=== PATIENT | male | born 1930 | race African-American/Black ===

== ENCOUNTER → 2016-10-10 | Outpatient (CLI) | payer MEDICARE, OTHER ==
[2016-10-10 13:12] LABS: ANION GAP 12 (5-19); BLOOD UREA NITROGEN 19 mg/dL (7-20); CALCIUM 9.4 mg/dL (8.4-10.2); CARBON DIOXIDE 27 mmol/L (22-30); CHLORIDE 103 mmol/L (98-107); CREATININE RESULT 1.59 mg/dL (0.52-1.25); GLUCOSE 187 mg/dL (75-110); POTASSIUM 5.2 mmol/L (3.6-5.0); SODIUM 141.7 mmol/L (137-145)
== END ==
LOC: OD 11:39
PROVIDERS: ATTEND Internal Medicine Cardiovascular Disease
DX: E78.5 Hyperlipidemia, unspecified (principal); E11.65 Type 2 diabetes mellitus with hyperglycemia; I10 Essential (primary) hypertension
CPT/HCPCS: 36415; 80048

== ENCOUNTER → 2016-10-26 | Outpatient (CLI) | payer MEDICARE, OTHER | LOC: OD 14:17 | PROVIDERS: ATTEND Urology | DX: C61 Malignant neoplasm of prostate (principal) | CPT/HCPCS: 36415; 84153 ==

== ENCOUNTER → 2016-10-28 | Outpatient (CLI) | payer MEDICARE, OTHER ==
--- NOTE | 2016-10-28 16:45 | RADIOLOGY REPORT (SQ) ---
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 The route of agent administration: Intravenous. ADDITIONAL DRUGS AND DOSES: None. TECHNIQUE: Routine delayed images at 3 hours post radionuclide injection acquired of the bony skelet on including anterior and posterior whole-body projections and additional focused images as needed. LIMITATIONS: None. FINDINGS: BONES: Normal visualization without areas of photopenia or increased bony uptake of radiop harmaceutical. KIDNEYS: Bilateral renal function is again identified with some fullness of the left pelvocaliceal sy stem unchanged from the previous study. OTHER: No other significant finding. IMPRESSION: No evidence for skeletal metastatic disease. Other findings as noted above. COMMENT: PQRS 3570F: Current bone scan is compared with any available plain radiographs, prior bone scans, and CT/MRI. TECHNICAL DOCUMENTATION: JOB ID: [id number] [id number]- All Rights Reserved
--- NOTE | 2016-10-29 02:25 | RADIOLOGY REPORT (SQ) ---
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 Coronal T2/ HASTE imaging. LIMITATIONS: None. FINDINGS: VISUALIZED UPPER ABDOMEN: Peripelvic cysts left kidney. SEGMENTATION: No transitional anatomy. The lowest well-developed disc space is labeled L5-S1. ALIGNMENT: Anatomic. VERTEBRAE: Intact. BONE MARROW: Normal. No marrow replacement or reactive changes. DISC SIGNAL: Mild loss of T2 signal sparing L3-4. POSTERIOR ELEMENTS: Generally intact. No pars defect evident. HARDWARE: None in the spine. CORD AND CONUS: Normal in size and signal intensity. Conus at the appropriate level. SOFT TISSUES: No aortic aneurysm seen. No bulky retroperitoneal adenopathy or mass. No paraspinal mas s or fluid. L1-L2: No significant spinal stenosis or exit foraminal stenosis. L2-L3: Mild disc bulge. Ligamentous and facet hypertrophy right greater than left with mild lateral recess narrowing. Mild narrowing of the exit foramina. L3-L4: Disc bulge with facet and ligamentous hypertrophy. Mild narrowing of the exit foramina right greater than left. L4-L5: Generalized disc bulge. Facet and ligamentous hypertrophy. Mild to moderate narrowing of the exit foramina. L5-S1: Disc bulge asymmetric left. Facet hypertrophy. Narrowing of the exit foramina left greater t linder right with deviation of the exiting left L5 root. LOWER THORACIC: Incompletely imaged. No stenosis seen. SACRUM: Visualized upper sacrum intact. OTHER: No other significant findings. IMPRESSION: Mild multilevel spondylosis. Predominantly exit foraminal narrowing with no significant spinal stenosis. Most prominent L5-S1 with there is deviation of the exiting left L5 root. TECHNICAL DOCUMENTATION: JOB ID: [id number] [employer]- All Rights Reserved
== END ==
LOC: RAD 08:46
PROVIDERS: ATTEND Radiology Radiation Oncology
DX: C61 Malignant neoplasm of prostate (principal)
CPT/HCPCS: 72148; 78306; A9561; Q9969

== ENCOUNTER 2016-11-29 16:59 | Emergency (ER) | payer MEDICARE, OTHER ==
--- NOTE | 2016-11-29 17:46 | ER Document Report ---
ED Medical Screen (RME) - General Chief Complaint: Abdominal Pain Stated Complaint: CONSTIPATION,ABDOMINIAL AND BACK PAIN Time Seen by Provider: 11/29/16 17:45 Notes: Patient states he has had no bowel movement for 1 week. This has happened one time before. His previous surgeries include a appendectomy and a hernia repair. He has been nauseated but has not vomited. He has had decreased appetite. TRAVEL OUTSIDE OF THE [place] IN LAST 30 DAYS: No - Related Data Allergies/Adverse Reactions: Shellfish * [Shellfish] Allergy (Verified 11/29/16 17:27) Past Medical History Neurological Medical History: Denies: Hx Seizures Renal/ Medical History: Denies: Hx Peritoneal Dialysis Physical Exam - Vital signs Vitals: Temp Pulse Resp BP Pulse Ox 97.8 F 75 16 136/82 H 98 11/29/16 17:26 11/29/16 17:26 11/29/16 17:26 11/29/16 17:26 11/29/16 17:26 Course - Vital Signs Vital signs: Temp Pulse Resp BP Pulse Ox 97.8 F 75 16 136/82 H 98 11/29/16 17:26 11/29/16 17:26 11/29/16 17:26 11/29/16 17:26 11/29/16 17:26
[2016-11-29 18:10] LABS: ABSOLUTE EOSINOPHILS # (AUTO) 0.1 10^3/uL (0.0-0.6); ABSOLUTE LYMPHOCYTES (AUTO) 0.6 10^3/uL (0.5-4.7); ABSOLUTE MONOCYTES (AUTO) 0.4 10^3/uL (0.1-1.4); ABSOLUTE NEUT (AUTO) 2.7 10^3/uL (1.7-8.2); BASOPHILS % (AUTO) 0.7 % (0-2); EOSINOPHILS % (AUTO) 2.3 % (0-6); HEMATOCRIT 32.7 % (37.9-51.0); HEMOGLOBIN 11.3 g/dL (13.5-17.0); HGB HCT DIFFERENCE 1.2; LYMPHOCYTES % (AUTO) 14.8 % (13-45); MEAN CORPUSCULAR HEMOGLOBIN 37.1 pg (27.0-33.4); MEAN CORPUSCULAR HGB CONC 34.5 g/dL (32.0-36.0); MEAN CORPUSCULAR VOLUME 108 fl (80-97); MONOCYTES % (AUTO) 11.3 % (3-13); RED BLOOD COUNT 3.03 10^6/uL (4.35-5.55); RED CELL DISTRIBUTION WIDTH 20.1 % (11.5-14.0); SEGMENTED NEUTROPHILS % (AUTO) 70.9 % (42-78); WHITE BLOOD COUNT 3.8 10^3/uL (4.0-10.5)
[2016-11-29 18:37] LABS: ALANINE AMINOTRANSFERASE 15 U/L (21-72); ALBUMIN 4.2 g/dL (3.5-5.0); ALKALINE PHOSPHATASE 52 U/L (38-126); ANION GAP 11 (5-19); ASPARTATE AMINO TRANSFERASE 22 U/L (17-59); BILIRUBIN,DIRECT 0.3 mg/dL (0.0-0.4); BILIRUBIN,TOTAL 0.6 mg/dL (0.2-1.3); BLOOD UREA NITROGEN 24 mg/dL (7-20); CALCIUM 9.5 mg/dL (8.4-10.2); CARBON DIOXIDE 25 mmol/L (22-30); CHLORIDE 102 mmol/L (98-107); CREATININE RESULT 1.55 mg/dL (0.52-1.25); GLUCOSE 123 mg/dL (75-110); POTASSIUM 4.4 mmol/L (3.6-5.0); SODIUM 138.2 mmol/L (137-145); TOTAL PROTEIN 7.3 g/dL (6.3-8.2)
--- NOTE | 2016-11-29 18:40 | RADIOLOGY REPORT (SQ) ---
EXAM DESCRIPTION: ACUTE ABDOMEN SERIES COMPLETED DATE/TIME: 11/29/2016 6:16 pm REASON FOR STUDY: abd pain COMPARISON: 09/08/2008 NUMBER OF VIEWS: Three views. TECHNIQUE: Frontal chest, supine abdomen and upright/decubitus abdomen radiographic images acquired. LIMITATIONS: None. FINDINGS: CHEST: Lungs clear of infiltrates. FREE AIR: None. No abnormal gas collections. BOWEL GAS PATTERN: Nonobstructive pattern. No dilated loops or air fluid levels. CONSTIPATION: moderate. CALCIFICATIONS: No suspicious calcifications. HARDWARE: None in the abdomen. SOFT TISSUES: No gross mass or suggestion of organomegaly. BONES: No acute fracture. No worrisome bone lesions. OTHER: No other significant finding. IMPRESSION: NO RADIOGRAPHIC EVIDENCE FOR ACUTE ABDOMINAL DISEASE. CONSTIPATION. TECHNICAL DOCUMENTATION: JOB ID: [id number] [employer]- All Rights Reserved
--- NOTE | 2016-11-29 19:43 | ER Document Report ---
ED GI/ - General Chief Complaint: Abdominal Pain Stated Complaint: CONSTIPATION,ABDOMINIAL AND BACK PAIN Time Seen by Provider: 11/29/16 17:45 Notes: Patient is an 86-year-old male who comes emergency department for chief complaint of generalized mid abdominal pain and no bowel movement for 1 week. He states he has had this problem before. He states he is taking a stool softener at home occasionally but he is not sure of the name. Daughter does not know the name either. He denies any vomiting, fever, or flank pain. He has had hernia repair but denies other abdominal surgeries. TRAVEL OUTSIDE OF THE [place] IN LAST 30 DAYS: No - Related Data Allergies/Adverse Reactions: Shellfish * [Shellfish] Allergy (Verified 11/29/16 17:27) Past Medical History - General Information source: Patient - Social History Smoking Status: Never Smoker Frequency of alcohol use: None Drug Abuse: None Lives with: Family Family History: Reviewed & Not Pertinent Patient has suicidal ideation: No Patient has homicidal ideation: No - Medical History Medical History: - So agitated - Past Medical History Cardiac Medical History: Reports: Hx Hypertension Neurological Medical History: Denies: Hx Seizures Renal/ Medical History: Denies: Hx Peritoneal Dialysis Past Surgical History: Reports: Hx Herniorrhaphy Review of Systems - Review of Systems Constitutional: No symptoms reported EENT: No symptoms reported Cardiovascular: No symptoms reported Respiratory: No symptoms reported Gastrointestinal: See HPI Genitourinary: No symptoms reported Male Genitourinary: No symptoms reported Musculoskeletal: No symptoms reported Skin: No symptoms reported Hematologic/Lymphatic: No symptoms reported Neurological/Psychological: No symptoms reported Physical Exam - Vital signs Vitals: Temp Pulse Resp BP Pulse Ox 97.8 F 75 16 136/82 H 98 11/29/16 17:26 11/29/16 17:26 11/29/16 17:26 11/29/16 17:26 11/29/16 17:26 Interpretation: Normal - General General appearance: Appears well In distress: None - HEENT Head: Normocephalic, Atraumatic Eyes: Normal Pupils: PERRL - Respiratory Respiratory status: No respiratory distress Chest status: Nontender Breath sounds: Normal Chest palpation: Normal - Cardiovascular Rhythm: Regular. No: Tachycardia Heart sounds: Normal auscultation, S1 appreciated, S2 appreciated Murmur: No - Abdominal Inspection: Normal Distension: No distension Bowel sounds: Normal Tenderness: Nontender. No: Tender, Guarding Organomegaly: No organomegaly - Rectal Stool: No: Black, Bloody Hemorrhoids: Internal - 1 small internal hemorrhoid, otherwise unremarkable Prostate: Normal - Back Back: Normal, Nontender. No: Tender, CVA tenderness - Extremities General upper extremity: Normal inspection, Nontender, Normal strength, Normal temperature General lower extremity: Normal inspection, Nontender, Normal strength, Normal temperature - Neurological Neuro grossly intact: Yes Cognition: Normal Orientation: AAOx4 Yanely Coma Scale Eye Opening: Spontaneous Yanely Coma Scale Verbal: Oriented Yaneyl Coma Scale Motor: Obeys Commands Yanely Coma Scale Total: 15 Speech: Normal Cranial nerves: Normal Cerebellar coordination: Normal Motor strength normal: LUE, RUE, LLE, RLE Additional motor exam normals: Equal bush regenerator Sensory: Normal - Psychological Associated symptoms: Normal affect, Normal mood - Skin Skin Temperature: Warm Skin Moisture: Dry Skin Color: Normal Course - Re-evaluation Re-evalutation: CBC and chemistry at patient's baseline of mild leukopenia, mild renal insufficiency, and mild chronic anemia. No concerning acute abnormalities noted. Acute abdominal series does not show evidence of bowel obstruction, shows large amount of retained stool throughout the colon. Rectal examination is unremarkable. 11/30/16 Patient was given a soapsuds and mineral oil enema, afterwards patient had a very large bowel movement, on reexamination he has no complaints. Patient will be placed on Colace at home, advised follow-up with his primary care in a few days, discussed with daughter, discussed return precautions. Patient and daughter express frustration with inability to get home health assistance over the past 2 months with asking his primary care, he asks for additional assistance with this, medical case worker consult will be placed. - Vital Signs Vital signs: Temp Pulse Resp BP Pulse Ox 98.1 F 70 18 145/80 H 98 11/29/16 21:59 11/29/16 21:59 11/29/16 21:59 11/29/16 21:59 11/29/16 21:59 - Laboratory Result Diagrams: 11/29/16 17:56 11/29/16 17:56 Laboratory results interpreted by me: 11/29/16 11/29/16 17:56 17:56 WBC 3.8 L RBC 3.03 L Hgb 11.3 L Hct 32.7 L MCV 108 H MCH 37.1 H RDW 20.1 H BUN 24 H Creatinine 1.55 H Est GFR ( Amer) 52 L Est GFR (Non-Af Amer) 43 L Glucose 123 H ALT 15 L Discharge - Discharge Clinical Impression: Abdominal pain Qualifiers: Abdominal location: generalized Qualified Code(s): R10.84 - Generalized abdominal pain Condition: Stable Disposition: HOME, SELF-CARE Additional Instructions: Workup shows constipation but no other acute abnormalities are seen. Take stool softener daily as prescribed, drink plenty of fluids, increase fiber in diet. Follow up with primary care in the next several days. Return for any concerning or worsening symptoms including worsening pain, vomiting, fever, or any other concerning symptoms. Prescriptions: Docusate Sodium [Colace 100 mg Capsule] 100 mg PO DAILY #30 capsule Referrals: TONY MANNING MD [Primary Care Provider] - Follow up as needed
[2016-11-29] MEDS ORDERED: MINERAL OIL 30 ML UDCUP PR ONE (19:51)
[2016-11-29 22:01] VITALS: BP 145/80
== END 2016-11-29 21:45 | disposition home or self-care (01) ==
LOC: ER 16:59
DX: K59.00 Constipation, unspecified (principal); R10.84 Generalized abdominal pain; I10 Essential (primary) hypertension; K64.8 Other hemorrhoids; D64.9 Anemia, unspecified; D72.819 Decreased white blood cell count, unspecified; N28.9 Disorder of kidney and ureter, unspecified; Z91.013 Allergy to seafood
CPT/HCPCS: 36415; 74022; 80053; 85025; 99283

== ENCOUNTER → 2016-12-08 | Outpatient (CLI) | payer MEDICARE, OTHER | LOC: OD 08:38 | PROVIDERS: ATTEND Radiology Radiation Oncology | DX: C61 Malignant neoplasm of prostate (principal) | CPT/HCPCS: 36415; 84153 ==

== ENCOUNTER 2017-03-07 11:49 | Emergency (ER) | payer MEDICARE, OTHER ==
--- NOTE | 2017-03-07 12:07 | ER Document Report ---
ED Medical Screen (RME) - General Chief Complaint: Urinary Problem Stated Complaint: BLOOD IN URINE Time Seen by Provider: 03/07/17 12:05 Notes: pt states he is urinating blood. TRAVEL OUTSIDE OF THE [place] IN LAST 30 DAYS: No - Related Data Allergies/Adverse Reactions: Shellfish * [Shellfish] Allergy (Verified 03/07/17 11:52) Past Medical History - Social History Chew tobacco use (# tins/day): No Frequency of alcohol use: None Drug Abuse: None - Past Medical History Cardiac Medical History: Reports: Hx Hypertension Neurological Medical History: Denies: Hx Seizures Renal/ Medical History: Denies: Hx Peritoneal Dialysis Past Surgical History: Reports: Hx Herniorrhaphy Physical Exam - Vital signs Vitals: Temp Pulse Resp BP Pulse Ox 97.9 F 63 16 121/63 99 03/07/17 11:53 03/07/17 11:53 03/07/17 11:53 03/07/17 11:53 03/07/17 11:53 Course - Vital Signs Vital signs: Temp Pulse Resp BP Pulse Ox 97.9 F 63 16 121/63 99 03/07/17 11:53 03/07/17 11:53 03/07/17 11:53 03/07/17 11:53 03/07/17 11:53
[2017-03-07 12:44] LABS: ABSOLUTE LYMPHOCYTES (AUTO) 0.6 10^3/uL (0.5-4.7); ABSOLUTE MONOCYTES (AUTO) 0.4 10^3/uL (0.1-1.4); ABSOLUTE NEUT (AUTO) 3.1 10^3/uL (1.7-8.2); BASOPHILS % (AUTO) 0.9 % (0-2); HEMATOCRIT 29.3 % (37.9-51.0); HEMOGLOBIN 10.2 g/dL (13.5-17.0); HGB HCT DIFFERENCE 1.3; LYMPHOCYTES % (AUTO) 13.6 % (13-45); MEAN CORPUSCULAR HGB CONC 34.9 g/dL (32.0-36.0); MONOCYTES % (AUTO) 10.5 % (3-13); RED BLOOD COUNT 2.56 10^6/uL (4.35-5.55); RED CELL DISTRIBUTION WIDTH 13.4 % (11.5-14.0); WHITE BLOOD COUNT 4.1 10^3/uL (4.0-10.5)
[2017-03-07 12:55] LABS: APPEARANCE,URINE SLIGHTLY-CLOUDY; BILIRUBIN,URINE NEGATIVE (NEGATIVE); GLUCOSE, URINE NEGATIVE (NEGATIVE); KETONES,URINE TRACE mg/dL (NEGATIVE); LEUKOCYTE ESTERASE,URINE NEGATIVE (NEGATIVE); NITRITE,URINE NEGATIVE (NEGATIVE); PROTEIN,URINE NEGATIVE (NEGATIVE); URINE SPECIFIC GRAVITY 1.019; UROBILINOGEN,URINE NEGATIVE mg/dL (<2.0)
[2017-03-07 13:05] LABS: ALANINE AMINOTRANSFERASE 17 U/L (21-72); ALBUMIN 4.5 g/dL (3.5-5.0); ALKALINE PHOSPHATASE 58 U/L (38-126); ANION GAP 11 (5-19); ASPARTATE AMINO TRANSFERASE 20 U/L (17-59); BILIRUBIN,DIRECT 0.3 mg/dL (0.0-0.4); BILIRUBIN,TOTAL 0.4 mg/dL (0.2-1.3); BLOOD UREA NITROGEN 29 mg/dL (7-20); CALCIUM 9.4 mg/dL (8.4-10.2); CARBON DIOXIDE 27 mmol/L (22-30); CHLORIDE 100 mmol/L (98-107); GLUCOSE 132 mg/dL (75-110); POTASSIUM 4.7 mmol/L (3.6-5.0); SODIUM 137.6 mmol/L (137-145); TOTAL PROTEIN 7.5 g/dL (6.3-8.2)
--- NOTE | 2017-03-07 13:42 | ER Document Report ---
ED GI/ - General Chief Complaint: Urinary Problem Stated Complaint: BLOOD IN URINE Time Seen by Provider: 03/07/17 12:05 Notes: The patient is an 86-year-old male, past medical history prostate cancer treated with radiation 5 years ago, presents after he had an episode of hematuria 12 hours ago. He said it cleared up and he does not take any blood thinners or aspirin daily. He denies dysuria, fevers, penile discharge, flank pain, lightheadedness, nausea, vomiting or testicular pain. TRAVEL OUTSIDE OF THE [place] IN LAST 30 DAYS: No - Related Data Allergies/Adverse Reactions: Shellfish * [Shellfish] Allergy (Verified 03/07/17 11:52) Past Medical History - General Information source: Patient - Social History Smoking Status: Former Smoker Chew tobacco use (# tins/day): No Frequency of alcohol use: None Drug Abuse: None Family History: Reviewed & Not Pertinent Patient has suicidal ideation: No Patient has homicidal ideation: No - Past Medical History Cardiac Medical History: Reports: Hx Hypertension Neurological Medical History: Denies: Hx Seizures Endocrine Medical History: Reports: Hx Diabetes Mellitus Type 2 Renal/ Medical History: Denies: Hx Peritoneal Dialysis Past Surgical History: Reports: Hx Appendectomy, Hx Herniorrhaphy Review of Systems - Review of Systems Notes: REVIEW OF SYSTEMS: CONSTITUTIONAL: -fevers, -chills EENT: -eye pain, -difficulty swallowing, -nasal congestion CARDIOVASCULAR:-chest pain, -syncope. RESPIRATORY: -cough, -SOB GASTROINTESTINAL: -abdominal pain, - nausea, -vomiting, -diarrhea GENITOURINARY: -dysuria, +hematuria MUSCULOSKELETAL: -back pain, -neck pain SKIN: -rash or skin lesions. HEMATOLOGIC: -easy bruising or bleeding. LYMPHATIC: -swollen, enlarged glands. NEUROLOGICAL: -altered mental status or loss of consciousness, -headache, - neurologic symptoms PSYCHIATRIC: -anxiety, -depression. ALL OTHER SYSTEMS REVIEWED AND NEGATIVE. Physical Exam - Vital signs Vitals: Temp Pulse Resp BP Pulse Ox 97.9 F 63 16 121/63 99 03/07/17 11:53 03/07/17 11:53 03/07/17 11:53 03/07/17 11:53 03/07/17 11:53 - Notes Notes: PHYSICAL EXAMINATION: GENERAL: Well-appearing, well-nourished and in no acute distress. HEAD: Atraumatic, normocephalic. EYES: Pupils equal round and reactive to light, extraocular movements intact, sclera anicteric, conjunctiva are normal. ENT: nares patent, oropharynx clear without exudates. Moist mucous membranes. NECK: Normal range of motion, supple without lymphadenopathy LUNGS: Breath sounds clear to auscultation bilaterally and equal. No wheezes rales or rhonchi. HEART: Regular rate and rhythm without murmurs ABDOMEN: Soft, nontender, normoactive bowel sounds. No guarding, no rebound. No masses appreciated. EXTREMITIES: Normal range of motion, no pitting or edema. No cyanosis. NEUROLOGICAL: Cranial nerves grossly intact. Normal speech, normal gait. Normal sensory and motor exams. PSYCH: Normal mood, normal affect. SKIN: Warm, Dry, normal turgor, no rashes or lesions noted. Course - Re-evaluation Re-evalutation: Patient appears well and is hemodynamically stable. His hemoglobin is at baseline and there is no blood in his urine on urinalysis. No evidence of UTI or pyelonephritis on exam. His creatinine is also at baseline. Instructed him to follow-up with his primary care physician and urologist for further evaluation and treatment. - Vital Signs Vital signs: Temp Pulse Resp BP Pulse Ox 97.9 F 63 16 121/63 99 03/07/17 11:53 03/07/17 11:53 03/07/17 11:53 03/07/17 11:53 03/07/17 11:53 - Laboratory Result Diagrams: 03/07/17 12:05 03/07/17 12:05 Laboratory results interpreted by me: 03/07/17 03/07/17 03/07/17 12:05 12:05 12:05 RBC 2.56 L Hgb 10.2 L Hct 29.3 L MCV 115 H MCH 40.0 H BUN 29 H Creatinine 1.50 H Est GFR ( Amer) 54 L Est GFR (Non-Af Amer) 44 L Glucose 132 H ALT 17 L Urine Ketones TRACE H Discharge - Discharge Clinical Impression: Hematuria Qualifiers: Hematuria type: unspecified type Qualified Code(s): R31.9 - Hematuria, unspecified Condition: Good Disposition: HOME, SELF-CARE Additional Instructions: There is no evidence of blood or a urinary tract infection in your urine today. If you continue to have the symptoms, follow-up with your primary care physician and urologist for further evaluation and treatment. Referrals: TONY MANNING MD [Primary Care Provider] - Follow up as needed MARYJO RUBIN II, MD [[facility]] - Follow up as needed
[2017-03-07 13:43] LABS: MEAN CORPUSCULAR VOLUME 115 fl (80-97)
[2017-03-07 13:44] LABS: ROULEAUX 1+
[2017-03-07 14:37] VITALS: BP 165/76
[2017-03-08 14:38] LABS: PATH REVIEW PATHOLOGIST REVIEWED
== END 2017-03-07 14:35 | disposition home or self-care (01) ==
LOC: ER 11:49
DX: R31.9 Hematuria, unspecified (principal); I10 Essential (primary) hypertension; E11.9 Type 2 diabetes mellitus without complications; Z85.46 Personal history of malignant neoplasm of prostate; Z92.3 Personal history of irradiation; Z91.013 Allergy to seafood; Z87.891 Personal history of nicotine dependence
CPT/HCPCS: 36415; 80053; 81001; 85025; 99283

== ENCOUNTER 2017-06-06 09:28 | Emergency (ER) | payer MEDICARE, OTHER ==
[2017-06-06 09:35] VITALS: BP 139/63
--- NOTE | 2017-06-06 10:11 | ER Document Report ---
ED General - General Chief Complaint: Skin Sore(s) Stated Complaint: LEFT LEG PAIN Time Seen by Provider: 06/06/17 10:02 Mode of Arrival: Ambulatory Information source: Patient Notes: 86 yr old diabetic male presents with skin tear of the left aguirre of 1 day duration, pt denies any fevers or chills notes that he has not been wearing the ocmpression stockings as he was supposed ot hadd blisters of both legs and this one popped. TRAVEL OUTSIDE OF THE [place] IN LAST 30 DAYS: No - HPI Onset: Yesterday Onset/Duration: Sudden Quality of pain: Other Severity: Mild Pain Level: Denies Associated symptoms: Other Exacerbated by: Denies Relieved by: Denies Similar symptoms previously: No Recently seen / treated by doctor: No - Related Data Allergies/Adverse Reactions: Shellfish * [Shellfish] Allergy (Verified 06/06/17 09:29) Past Medical History - Social History Smoking Status: Never Smoker Cigarette use (# per day): No Chew tobacco use (# tins/day): No Smoking Education Provided: No Family History: Reviewed & Not Pertinent - Past Medical History Cardiac Medical History: Reports: Hx Hypertension Neurological Medical History: Denies: Hx Seizures Endocrine Medical History: Reports: Hx Diabetes Mellitus Type 2 Renal/ Medical History: Denies: Hx Peritoneal Dialysis Past Surgical History: Reports: Hx Appendectomy, Hx Herniorrhaphy Review of Systems - Review of Systems Notes: REVIEW OF SYSTEMS: CONSTITUTIONAL : Denies fever, chills, or sweats. Denies recent illness. EENT: Denies eye, ear, throat, or mouth pain or symptoms. Denies nasal or sinus congestion or discharge. Denies throat, tongue, or mouth swelling or difficulty swallowing. CARDIOVASCULAR: Denies chest pain. Denies palpitations or racing or irregular heart beat. Denies ankle edema. RESPIRATORY: Denies cough, cold, or chest congestion. Denies shortness of breath, difficulty breathing, or wheezing. GASTROINTESTINAL: Denies abdominal pain or distention. Denies nausea, vomiting , or diarrhea. Denies blood in vomitus, stools, or per rectum. Denies black, tarry stools. Denies constipation. GENITOURINARY: Denies difficulty urinating, painful urination, burning, frequency, blood in urine, or discharge. MUSCULOSKELETAL: Denies back or neck pain or stiffness. Denies joint pain or swelling. SKIN: left aguirre blister HEMATOLOGIC : Denies easy bruising or bleeding. LYMPHATIC: Denies swollen, enlarged glands. NEUROLOGICAL: Denies confusion or altered mental status. Denies passing out or loss of consciousness. Denies dizziness or lightheadedness. Denies headache. Denies weakness or paralysis or loss of use of either side. Denies problems with gait or speech. Denies sensory loss, numbness, or tingling. Denies seizures. PSYCHIATRIC: Denies anxiety or stress. Denies depression, suicidal ideation, or homicidal ideation. ALL OTHER SYSTEMS REVIEWED AND NEGATIVE. Dictation was performed using [employer] voice recognition software PHYSICAL EXAMINATION: GENERAL: Well-appearing, well-nourished and in no acute distress. HEAD: Atraumatic, normocephalic. EYES: Pupils equal round and reactive to light, extraocular movements intact, sclera anicteric, conjunctiva are normal. ENT: Nares patent, oropharynx clear without exudates. Moist mucous membranes. NECK: Normal range of motion, supple without lymphadenopathy LUNGS: Breath sounds clear to auscultation bilaterally and equal. No wheezes rales or rhonchi. HEART: Regular rate and rhythm without murmurs ABDOMEN: Soft, nontender, nondistended abdomen. No guarding, no rebound. No masses appreciated. Musculoskeletal: Normal range of motion, no pitting or edema. No cyanosis. NEUROLOGICAL: Cranial nerves grossly intact. Normal speech, normal gait. Normal sensory, motor exams PSYCH: Normal mood, normal affect. SKIN: skin tear of the left aguirre, 2 blisters of the right calf Physical Exam - Vital signs Vitals: Temp Pulse Resp BP Pulse Ox 98.0 F 60 20 139/63 H 100 06/06/17 09:34 06/06/17 09:34 06/06/17 09:34 06/06/17 09:34 06/06/17 09:34 Course - Re-evaluation Re-evalutation: 06/06/17 15:21 there is no secondary sign of infection, the blister has caused the skin to slough off. pt will be given wound care, follow up with the wound care clinic and antibiotics prophylactically. After performing a Medical Screening Examination, I estimate there is LOW risk for OPEN FRACTURE, COMPARTMENT SYNDROME, TENDON RUPTURE, ACUTE NEUROVASCULAR INJURY, or RETAINED FOREIGN BODY, thus I consider the discharge disposition reasonable. Also, there is no evidence or peritonitis, sepsis, or toxicity. I have reevaluated this patient multiple times and no significant life threatening changes are noted. The patient and I have discussed the diagnosis and risks, and we agree with discharging home with close follow-up with the understanding that symptoms and presentations can change. We also discussed returning to the Emergency Department immediately if new or worsening symptoms occur. We have discussed the symptoms which are most concerning (e.g., changing or worsening pain, fever, numbness, weakness, cool or painful digits) that necessitate immediate return. - Vital Signs Vital signs: Temp Pulse Resp BP Pulse Ox 98.0 F 60 20 139/63 H 100 06/06/17 09:34 06/06/17 09:34 06/06/17 09:34 06/06/17 09:34 06/06/17 09:34 Discharge - Discharge Clinical Impression: wound diabetic Diabetes Qualifiers: Diabetes mellitus type: type 2 Diabetes mellitus complication status: with skin complications Diabetes mellitus complication detail: with other skin ulcer Diabetes mellitus skilled nursing insulin use: without truck terminal manager use Qualified Code(s) : E11.622 - Type 2 diabetes mellitus with other skin ulcer Condition: Stable Disposition: HOME, SELF-CARE Instructions: Delayed Wound Closure ([facility]), Dressing Instructions for Open Wounds ([facility]) Prescriptions: Cephalexin Monohydrate [Keflex 500 mg Capsule] 500 mg PO QID #40 capsule Sulfamethoxazole/Trimethoprim [Bactrim Ds Tablet] 2 each PO BID #40 tablet Referrals: Wound Care [Provider Group] - Follow up in 3-5 days
== END 2017-06-06 10:15 | disposition home or self-care (01) ==
LOC: ER 09:28
DX: E11.622 Type 2 diabetes mellitus with other skin ulcer (principal); L98.499 Non-pressure chronic ulcer of skin of other sites with unspecified severity; S80.821A Blister (nonthermal), right lower leg, initial encounter; S81.812A Laceration without foreign body, left lower leg, initial encounter; X58.XXXA Exposure to other specified factors, initial encounter; I10 Essential (primary) hypertension; Z91.013 Allergy to seafood
CPT/HCPCS: 99283

== ENCOUNTER → 2017-07-03 | Outpatient (CLI) | payer MEDICARE, OTHER ==
--- NOTE | 2017-07-03 18:07 | XCELERA REPORT ---
[address] [address] Lower Extremity Arterial Evaluation Name: ROBBI JANG Age: 86 yrs Gender: Male : 1930 Patient Status: Outpatient Patient Location: Study Date: 07/03/2017 09:03 AM Procedure: A color flow and duplex scan of the lower extremity arteries was performed bilaterally with velocity and waveform analysis. Reason For Study: ULCER Ordering Physician: RACHEL ABRAMS Performed By: Suzanne Carrillo Measurements and Calculations Right Left CLINICAL DATA ANALYST PSV 83.5 82.5 cm/sec Prox PFA PSV 67.0 -55.6 cm/sec Prox SFA PSV 111.9 128.9 cm/sec Mid SFA PSV -88.6 -80.9 cm/sec Dist SFA PSV -93.9 -74.6 cm/sec Prox Pop A PSV 71.9 56.4 cm/sec Dist BEBETO PSV 100.8 71.2 cm/sec Prox CONCRETE FENCE BUILDER PSV 74.2 cm/sec Dist CONCRETE FENCE BUILDER PSV 46.3 85.5 cm/sec Dist Cleo A PSV 94.7 cm/sec Jass Pedis PSV 82.9 63.8 cm/sec Right Side Arterial Evaluation Normal velocity and triphasic waveforms noted from the Common Femoral artery to the Anterior Tibial artery. Biphasic in the Deep Femoral artery. Occlusion with reconstitution in the Posterior Tibial artery. Occlusion at the Posterior Tibial artery. Ankle Brachial index is 1.2. Left Side Arterial Evaluation Normal velocity and triphasic waveforms noted from the Common Femoral artery to the infrageniculate vessels. No stenosis noted. Ankle Brachial index is 1.1. Interpretation Summary Mild hemodynamically significant lesions in the right lower extremity only, on duplex imaging, at rest. No hemodynamically significant lesions in the left lower extremity only, on duplex imaging, at rest. : RACHEL ABRAMS > Rachel Abrams
== END ==
LOC: SP 08:53
PROVIDERS: ATTEND Surgery
DX: L97.222 Non-pressure chronic ulcer of left calf with fat layer exposed (principal)
CPT/HCPCS: 93922; 93925

== ENCOUNTER → 2017-07-26 | Outpatient (CLI) | payer MEDICARE, OTHER ==
[2017-07-26 13:46] LABS: ANION GAP 13 (5-19); BLOOD UREA NITROGEN 22 mg/dL (7-20); CALCIUM 10.1 mg/dL (8.4-10.2); CARBON DIOXIDE 28 mmol/L (22-30); CHLORIDE 101 mmol/L (98-107); GLUCOSE 114 mg/dL (75-110); POTASSIUM 5.4 mmol/L (3.6-5.0); SODIUM 141.7 mmol/L (137-145)
== END ==
LOC: OD 12:19
PROVIDERS: ATTEND Internal Medicine Cardiovascular Disease
DX: E11.22 Type 2 diabetes mellitus with diabetic chronic kidney disease (principal); I12.9 Hypertensive chronic kidney disease with stage 1 through stage 4 chronic kidney disease, or unspecified chronic kidney disease; N18.3 Chronic kidney disease, stage 3 (moderate)
CPT/HCPCS: 36415; 80048

== ENCOUNTER → 2017-08-22 | Outpatient (CLI) | payer MEDICARE, OTHER ==
[2017-08-22 09:03] LABS: ABSOLUTE BASOPHILS # (AUTO) 0.1 10^3/uL (0.0-0.2); ABSOLUTE EOSINOPHILS # (AUTO) 0.1 10^3/uL (0.0-0.6); ABSOLUTE MONOCYTES (AUTO) 0.5 10^3/uL (0.1-1.4); ABSOLUTE NEUT (AUTO) 3.5 10^3/uL (1.7-8.2); EOSINOPHILS % (AUTO) 1.5 % (0-6); HEMATOCRIT 33.6 % (37.9-51.0); HEMOGLOBIN 11.1 g/dL (13.5-17.0); LYMPHOCYTES % (AUTO) 18.9 % (13-45); MEAN CORPUSCULAR HEMOGLOBIN 32.8 pg (27.0-33.4); MEAN CORPUSCULAR HGB CONC 33.1 g/dL (32.0-36.0); MEAN CORPUSCULAR VOLUME 99 fl (80-97); MONOCYTES % (AUTO) 9.5 % (3-13); PLATELET COUNT 511 10^3/uL (150-450); RED CELL DISTRIBUTION WIDTH 14.1 % (11.5-14.0); SEGMENTED NEUTROPHILS % (AUTO) 69.1 % (42-78); TOTAL CELLS COUNTED % (AUTO) 100 %
[2017-08-22 09:24] LABS: ALANINE AMINOTRANSFERASE 15 U/L (21-72); ALBUMIN 4.5 g/dL (3.5-5.0); ALKALINE PHOSPHATASE 65 U/L (38-126); ANION GAP 17 (5-19); ASPARTATE AMINO TRANSFERASE 17 U/L (17-59); BILIRUBIN,DIRECT 0.3 mg/dL (0.0-0.4); BILIRUBIN,TOTAL 0.4 mg/dL (0.2-1.3); BLOOD UREA NITROGEN 24 mg/dL (7-20); CALCIUM 9.9 mg/dL (8.4-10.2); CARBON DIOXIDE 25 mmol/L (22-30); CHLORIDE 102 mmol/L (98-107); GLUCOSE 180 mg/dL (75-110); POTASSIUM 5.3 mmol/L (3.6-5.0); SODIUM 143.6 mmol/L (137-145); TOTAL PROTEIN 7.7 g/dL (6.3-8.2)
== END ==
LOC: OD 08:19
PROVIDERS: ATTEND Internal Medicine Medical Oncology
DX: D47.3 Essential (hemorrhagic) thrombocythemia (principal)
CPT/HCPCS: 36415; 80053; 85025

== ENCOUNTER → 2017-11-21 | Outpatient (CLI) | payer MEDICARE, OTHER ==
[2017-11-21 09:56] LABS: ABSOLUTE BASOPHILS # (AUTO) 0.1 10^3/uL (0.0-0.2); ABSOLUTE EOSINOPHILS # (AUTO) 0.1 10^3/uL (0.0-0.6); ABSOLUTE LYMPHOCYTES (AUTO) 0.9 10^3/uL (0.5-4.7); ABSOLUTE MONOCYTES (AUTO) 0.6 10^3/uL (0.1-1.4); ABSOLUTE NEUT (AUTO) 3.7 10^3/uL (1.7-8.2); BASOPHILS % (AUTO) 1.2 % (0-2); EOSINOPHILS % (AUTO) 2.2 % (0-6); HEMATOCRIT 33.1 % (37.9-51.0); HEMOGLOBIN 11.1 g/dL (13.5-17.0); LYMPHOCYTES % (AUTO) 16.5 % (13-45); MEAN CORPUSCULAR HEMOGLOBIN 32.7 pg (27.0-33.4); MEAN CORPUSCULAR HGB CONC 33.7 g/dL (32.0-36.0); MEAN CORPUSCULAR VOLUME 97 fl (80-97); MONOCYTES % (AUTO) 11.6 % (3-13); PLATELET COUNT 452 10^3/uL (150-450); RED CELL DISTRIBUTION WIDTH 16.8 % (11.5-14.0); SEGMENTED NEUTROPHILS % (AUTO) 68.5 % (42-78); TOTAL CELLS COUNTED % (AUTO) 100 %; WHITE BLOOD COUNT 5.4 10^3/uL (4.0-10.5)
== END ==
LOC: OD 08:16
PROVIDERS: ATTEND Internal Medicine Medical Oncology
DX: D47.3 Essential (hemorrhagic) thrombocythemia (principal)
CPT/HCPCS: 36415; 85025

== ENCOUNTER → 2017-12-06 | Outpatient (CLI) | payer MEDICARE, OTHER ==
[2017-12-06 11:53] LABS: ABSOLUTE EOSINOPHILS # (AUTO) 0.1 10^3/uL (0.0-0.6); ABSOLUTE LYMPHOCYTES (AUTO) 0.8 10^3/uL (0.5-4.7); ABSOLUTE MONOCYTES (AUTO) 0.5 10^3/uL (0.1-1.4); ABSOLUTE NEUT (AUTO) 3.1 10^3/uL (1.7-8.2); BASOPHILS % (AUTO) 0.2 % (0-2); EOSINOPHILS % (AUTO) 2.2 % (0-6); HEMATOCRIT 34.2 % (37.9-51.0); HEMOGLOBIN 11.5 g/dL (13.5-17.0); LYMPHOCYTES % (AUTO) 18.1 % (13-45); MEAN CORPUSCULAR HEMOGLOBIN 32.8 pg (27.0-33.4); MEAN CORPUSCULAR HGB CONC 33.7 g/dL (32.0-36.0); MEAN CORPUSCULAR VOLUME 97 fl (80-97); MONOCYTES % (AUTO) 10.1 % (3-13); PLATELET COUNT 523 10^3/uL (150-450); RED BLOOD COUNT 3.52 10^6/uL (4.35-5.55); RED CELL DISTRIBUTION WIDTH 16.8 % (11.5-14.0); SEGMENTED NEUTROPHILS % (AUTO) 69.4 % (42-78); TOTAL CELLS COUNTED % (AUTO) 100 %; WHITE BLOOD COUNT 4.5 10^3/uL (4.0-10.5)
[2017-12-06 12:27] LABS: ALANINE AMINOTRANSFERASE 10 U/L (21-72); ALBUMIN 4.5 g/dL (3.5-5.0); ALKALINE PHOSPHATASE 62 U/L (38-126); ANION GAP 13 (5-19); ASPARTATE AMINO TRANSFERASE 26 U/L (17-59); BILIRUBIN,DIRECT 0.3 mg/dL (0.0-0.4); BILIRUBIN,TOTAL 0.5 mg/dL (0.2-1.3); BLOOD UREA NITROGEN 23 mg/dL (7-20); CALCIUM 9.6 mg/dL (8.4-10.2); CARBON DIOXIDE 24 mmol/L (22-30); CHLORIDE 106 mmol/L (98-107); GLUCOSE 127 mg/dL (75-110); POTASSIUM 5.3 mmol/L (3.6-5.0); SODIUM 142.8 mmol/L (137-145); TOTAL PROTEIN 8.2 g/dL (6.3-8.2)
== END ==
LOC: WC 10:56
PROVIDERS: ATTEND Nurse Practitioner
DX: L97.222 Non-pressure chronic ulcer of left calf with fat layer exposed (principal)
CPT/HCPCS: 36415; 80053; 85025

== ENCOUNTER → 2017-12-14 | Outpatient (CLI) | payer MEDICARE, OTHER | LOC: OD 10:46 | PROVIDERS: ATTEND Radiology Radiation Oncology | DX: C61 Malignant neoplasm of prostate (principal); R97.20 Elevated prostate specific antigen [PSA] | CPT/HCPCS: 36415; 84153 ==

== ENCOUNTER → 2018-02-15 | Outpatient (CLI) | payer MEDICARE, OTHER ==
[2018-02-15 10:39] LABS: HEMATOCRIT 34.9 % (37.9-51.0); HEMOGLOBIN 12.1 g/dL (13.5-17.0); RED BLOOD COUNT 3.49 10^6/uL (4.35-5.55); WHITE BLOOD COUNT 6.2 10^3/uL (4.0-10.5)
[2018-02-15 10:40] LABS: ABSOLUTE BASOPHILS # (AUTO) 0.1 10^3/uL (0.0-0.2); ABSOLUTE EOSINOPHILS # (AUTO) 0.3 10^3/uL (0.0-0.6); ABSOLUTE LYMPHOCYTES (AUTO) 1.3 10^3/uL (0.5-4.7); ABSOLUTE MONOCYTES (AUTO) 0.7 10^3/uL (0.1-1.4); ABSOLUTE NEUT (AUTO) 3.8 10^3/uL (1.7-8.2); BASOPHILS % (AUTO) 0.8 % (0-2); EOSINOPHILS % (AUTO) 4.2 % (0-6); LYMPHOCYTES % (AUTO) 21.5 % (13-45); MEAN CORPUSCULAR HEMOGLOBIN 34.6 pg (27.0-33.4); MEAN CORPUSCULAR HGB CONC 34.6 g/dL (32.0-36.0); MEAN CORPUSCULAR VOLUME 100 fl (80-97); MONOCYTES % (AUTO) 11.6 % (3-13); PLATELET COUNT 441 10^3/uL (150-450); RED CELL DISTRIBUTION WIDTH 14.8 % (11.5-14.0); SEGMENTED NEUTROPHILS % (AUTO) 61.9 % (42-78); TOTAL CELLS COUNTED % (AUTO) 100 %
== END ==
LOC: OD 08:17
PROVIDERS: ATTEND Internal Medicine Medical Oncology
DX: D47.3 Essential (hemorrhagic) thrombocythemia (principal)
CPT/HCPCS: 36415; 85025

== ENCOUNTER → 2019-09-04 | Outpatient (CLI) | payer MEDICARE, OTHER ==
--- NOTE | 2019-09-04 14:54 | RADIOLOGY REPORT (SQ) ---
EXAM DESCRIPTION: U/S RETROPERITON (RENAL/AORTA) IMAGES COMPLETED DATE/TIME: 09/04/2019 12:13 pm REASON FOR STUDY: N18.3 CHRONIC KIDNEY DISEASE, STAGE 3 (MODERATE) N18.3 CHRONIC KIDNEY DISEASE, ST AGE 4 (MODERATE) COMPARISON: CT of the abdomen and pelvis with contrast from 11/19/2010. TECHNIQUE: Dynamic and static grayscale images acquired of the kidneys and bladder and recorded on P ACS. Additional selected color Doppler and spectral images recorded. LIMITATIONS: Evaluation is limited due to overlying bowel. FINDINGS: RIGHT KIDNEY: The right kidney measures 11.9 cm in length. There is no hydronephrosis or calcification. LEFT KIDNEY: The left kidney measures 10.9 cm in length. There are multiple parapelvic cysts. Ther e is no hydronephrosis or calcification. BLADDER: No abnormality. OTHER FINDINGS: No other finding. IMPRESSION: Parapelvic cyst in the left kidney. There is no hydronephrosis. TECHNICAL DOCUMENTATION: JOB ID: [id number] 2010 [employer]- All Rights Reserved Reading location - IP/workstation name: [email or web address]
== END ==
LOC: RAD 11:07
PROVIDERS: ATTEND Internal Medicine Nephrology
DX: N18.3 Chronic kidney disease, stage 3 (moderate) (principal); Q61.02 Congenital multiple renal cysts
CPT/HCPCS: 76770

== ENCOUNTER → 2019-09-23 | Outpatient (CLI) | payer MEDICARE, OTHER ==
[2019-09-23 09:15] LABS: ABSOLUTE EOSINOPHILS # (AUTO) 0.2 10^3/uL (0.0-0.6); ABSOLUTE MONOCYTES (AUTO) 0.5 10^3/uL (0.1-1.4); ABSOLUTE NEUT (AUTO) 3.1 10^3/uL (1.7-8.2); EOSINOPHILS % (AUTO) 3.7 % (0-6); LYMPHOCYTES % (AUTO) 20.9 % (13-45); MEAN CORPUSCULAR HEMOGLOBIN 34.8 pg (27.0-33.4); MEAN CORPUSCULAR HGB CONC 34.3 g/dL (32.0-36.0); MEAN CORPUSCULAR VOLUME 102 fl (80-97); MONOCYTES % (AUTO) 9.9 % (3-13); PLATELET COUNT 460 10^3/uL (150-450); RED BLOOD COUNT 3.73 10^6/uL (4.35-5.55); SEGMENTED NEUTROPHILS % (AUTO) 64.5 % (42-78); TOTAL CELLS COUNTED % (AUTO) 100 %; WHITE BLOOD COUNT 4.8 10^3/uL (4.0-10.5)
[2019-09-23 09:42] LABS: ALBUMIN 4.5 g/dL (3.5-5.0); ANION GAP 8 (5-19); BLOOD UREA NITROGEN 19 mg/dL (7-20); CALCIUM 9.5 mg/dL (8.4-10.2); CARBON DIOXIDE 27 mmol/L (22-30); CHLORIDE 102 mmol/L (98-107); GLUCOSE 147 mg/dL (75-110); PHOSPHORUS 3.4 mg/dL (2.5-4.5); POTASSIUM 4.8 mmol/L (3.6-5.0)
[2019-09-23 09:51] LABS: APPEARANCE,URINE CLEAR; BILIRUBIN,URINE NEGATIVE (NEGATIVE); COLOR,URINE YELLOW; GLUCOSE, URINE NEGATIVE (NEGATIVE); KETONES,URINE TRACE mg/dL (NEGATIVE); LEUKOCYTE ESTERASE,URINE NEGATIVE (NEGATIVE); NITRITE,URINE NEGATIVE (NEGATIVE); PROTEIN,URINE 30 mg/dL (NEGATIVE); URINE SPECIFIC GRAVITY 1.023; UROBILINOGEN,URINE NEGATIVE mg/dL (<2.0)
[2019-09-24 11:37] LABS: CREATININE URINE 274.6 mg/dL (Not Estab.); MICROALBUMIN URINE 92.8 ug/mL (Not Estab.)
== END ==
LOC: OD 08:42
PROVIDERS: ATTEND Internal Medicine Nephrology
DX: N18.3 Chronic kidney disease, stage 3 (moderate) (principal)
CPT/HCPCS: 36415; 80069; 81001; 82043; 82306; 82570; 83970; 85025